=== PATIENT | male | born 2005 | race Caucasian/White ===

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

== ENCOUNTER 2024-02-06 23:20 | Emergency (ER) | payer MEDICAID, OTHER ==
[~2024-02-06] VITALS: Ht 182.9 cm; Wt 131.5 kg
[~2024-02-06 23:20] MED LIST changes: +ALBU0.0912 INH; +BENZ200C4 PO; +BUDE10.23 IH; +PRED20TA5 PO
[2024-02-06 23:31] VITALS: BP 141/73; PULSE 80; RESP 18; TEMP 97; O2SAT 98
[2024-02-06] MEDS ORDERED: ALBUTEROL 0.083% 2.5 MG/3 ML NEBU INH ONE (23:46)
[2024-02-06 23:49] VITALS: PULSE 100; RESP 20; O2SAT 97
[2024-02-06] MEDS: ALBUTEROL 0.083% 2.5 MG/3 ML NEBU INH ONE (23:49)
[2024-02-07] MEDS ORDERED: BUDE10.23 IH (00:37)
[2024-02-07] MEDS ORDERED: PRED20TA5 PO (00:37)
== END 2024-02-07 00:41 | disposition home or self-care (01) ==
LOC: MED 23:20
DX: J45.901 Unspecified asthma with (acute) exacerbation (principal); Z79.899 Other long term (current) drug therapy
CPT/HCPCS: 94640; 99283; J7613